=== PATIENT | male | born 1965 | race Caucasian/White ===

== ENCOUNTER 2018-10-26 07:49 | Emergency (ER) | payer MEDICARE ==
[2018-10-26] MEDS ORDERED: TETRACAINE HCL 0.5% OPH SOLN 4 ML OU ONE (08:05)
--- NOTE | 2018-10-26 08:39 | ER Document Report ---
ED Eye Complaint - General Chief Complaint: Eye Problem Stated Complaint: EYE PAIN Time Seen by Provider: 10/26/18 08:04 Mode of Arrival: Ambulatory Information source: Patient Notes: Patient is an otherwise healthy 53-year-old male who presents with chief complaint of possible foreign object in his right eye. Patient reports that he was doing some work on his home and he thinks he got a piece of metal in his eye. Patient states this occurred on Thursday. Patient thought it would get better on its own. Patient reports that he is legally blind at his baseline, does not wear any corrective lenses or use contacts. TRAVEL OUTSIDE OF THE [place] IN LAST 30 DAYS: No - Related Data Allergies/Adverse Reactions: No Known Allergies Allergy (Verified 10/26/18 08:03) Past Medical History - General Information source: Patient - Social History Smoking Status: Current Every Day Smoker Frequency of alcohol use: None Drug Abuse: None Family History: Reviewed & Not Pertinent Patient has suicidal ideation: No Patient has homicidal ideation: No Renal/ Medical History: Denies: Hx Peritoneal Dialysis Musculoskeletal Medical History: Reports Other - Chronic back pain Past Surgical History: Reports: Hx Orthopedic Surgery - back surgery x2 - Immunizations Immunizations up to date: Yes Review of Systems - Review of Systems EENT: Eye pain Physical Exam - Vital signs Vitals: Temp Pulse Resp BP Pulse Ox 97.6 F 60 18 154/99 H 98 10/26/18 07:52 10/26/18 07:52 10/26/18 07:52 10/26/18 07:52 10/26/18 07:52 - Notes Notes: PHYSICAL EXAMINATION: GENERAL: Well-appearing, well-nourished and in no acute distress. HEAD: Atraumatic, normocephalic. EYES: Pupils equal round extraocular movements intact, conjunctiva mildly erythematous to right eye. Foreign body noted to the right eye over the iris at approximately 8 o'clock position. ENT: Nares patent NECK: Normal range of motion LUNGS: No respiratory distress, lung sounds clear to auscultation bilaterally. Musculoskeletal: Normal range of motion NEUROLOGICAL: Normal speech, normal gait. PSYCH: Normal mood, normal affect. SKIN: Warm, Dry, normal turgor, no rashes or lesions noted. Course - Re-evaluation Re-evalutation: Tetracaine drop was instilled into right eye, eye was then dyed with fluorescein for formal eye exam. No uptake of fluorescein dye was noted. There is a foreign body noted to the right eye within the iris at approximately 8 o'clock position. I did attempt to gently remove this with a cotton swab without success. Dr. Frost then came to the bedside to attempt to remove the foreign body with an 18-gauge needle. The foreign body was unable to be removed as it has been there since Thursday. Consulted on-call staff certified nurse midwife, Dr. Mejia who would like patient to come straight to his office so that he can remove the foreign body in the office. Discussed this plan with the patient and patient will be discharged in stable condition with plans to drive straight to Dr. Mejia office. - Vital Signs Vital signs: Temp Pulse Resp BP Pulse Ox 97.7 F 62 18 123/73 100 10/26/18 08:43 10/26/18 08:43 10/26/18 07:52 10/26/18 08:43 10/26/18 08:43 Procedures - Eye Procedure Right Time completed: 08:30 Alcaine Drops Administered: Yes - Tetracaine Fluorescein applied: Right Discharge - Discharge Clinical Impression: Foreign body of right eye Qualifiers: Encounter type: initial encounter Qualified Code(s): T15.91XA - Foreign body on external eye, part unspecified, right eye, initial encounter Condition: Stable Disposition: HOME, SELF-CARE Additional Instructions: Foreign Body You may have had a particle of dust or other foreign body in your eye Today, the foreign body was unable to be removed here in the emergency department. Your eye may be irritated until complete healing occurs. The usual treatment is to place antibiotics in the eye. In addition, pain medication may be necessary. A follow-up visit may be scheduled to assure healing. Do not drive or operate machinery until you have the full use of both your eyes. Healing of the area takes one to three days. If eye pain becomes severe, or if there is purulent drainage, eye swelling , or decreasing vision, call the doctor or return at once for re-evaluation. Please proceed to the staff certified nurse midwife office as outlined below. Dr. Mejia is expecting you. Referrals: HOOD MEJIA MD [ACTIVE STAFF] - Follow up as needed
[2018-10-26 08:46] VITALS: BP 123/73
--- NOTE | 2018-10-26 23:15 | ER Document Report ---
Doctor's Note Notes: I personally and independently obtained patient history and examined the patient in conjunction with the APC and agree with the assessment, treatment plan and disposition of the patient as recorded by the APC, and have reviewed the APC's note. HISTORY OF PRESENT ILLNESS: Patient is a 53 year old male that presents to the emergency department for chief complaint of right eye pain. Patient states that he believes that he got a piece of metal in his eye on Thursday. ROS: Constitutional: Negative for fever. Cardiovascular: Negative for chest pain. Respiratory: Negative for shortness of breath. Gastrointestinal: Negative for vomiting or abdominal pain Musculoskeletal: Negative for arm, leg or back pain Skin: Negative for rash. Neurological: Negative for weakness or numbness. Other than noted above, the 12 point review of systems was reviewed with the patient and were negative, all pertinent findings are included in the HPI. PHYSICAL EXAMINATION: Vital signs reviewed, nursing noted reviewed. GENERAL: Well-appearing, well-nourished and in no acute distress. HEAD: Atraumatic, normocephalic. EYES: Right eye injected, small FB noted in the 9 O'clock position ENT: nares patent, oropharynx clear without exudates. Moist mucous membranes. NECK: Normal range of motion, supple without lymphadenopathy LUNGS: Breath sounds clear to auscultation bilaterally and equal. No wheezes rales or rhonchi. HEART: Regular rate and rhythm without murmurs EXTREMITIES: Nontender, good range of motion, no pitting or edema. NEUROLOGICAL: No focal neurological deficits. Moves all extremities spontaneously Motor and sensory grossly intact on exam. PSYCH: Normal mood, normal affect. SKIN: Warm, Dry, normal turgor, no rashes or lesions noted on exposed MEDICAL DECISION MAKING: Patient noted to have a FB in the right corneal just lateral to the pupil, his eye was anesthetized with tetracaine, and using the tip of an 18G needle the foreign body was attempted to be removed. However on a very small piece was able to be removed. This was concerning for epithelization of the FB. I advised consulting ophthalmology, who stated they would see the patient in the office since we did not have an eye socorro available in the ED. Patient discharged. Please review detail APC documentation. *Note is created using voice recognition software and may contain spelling, syntax or grammatical errors.
== END 2018-10-26 08:46 | disposition home or self-care (01) ==
LOC: ER 07:49
DX: T15.91XA Foreign body on external eye, part unspecified, right eye, initial encounter (principal); X58.XXXA Exposure to other specified factors, initial encounter; Y92.008 Other place in unspecified non-institutional (private) residence as the place of occurrence of the external cause
CPT/HCPCS: 99283; 65205; J3490